=== PATIENT | male | born 1960 | race Caucasian/White ===

== ENCOUNTER 2024-05-24 18:26 | Emergency (ER) | payer MEDICARE, SELFPAY ==
[2024-05-24 18:28] VITALS: BP 119/93
[2024-05-24 19:24] VITALS: BP 140/94
[2024-05-24 19:25] VITALS: BMI 27.2
[2024-05-24 19:45] LABS: % Basophils 1.4 % (0-2); % Eosinophils 3.1 % (0-6); % Immature Granulocytes 0.2 % (0-0.5); % Lymphocytes 24.3 % (20.5-51.1); % Monocytes 8.1 % (1.7-9.3); % Neutrophils 62.9 % (42.2-75.2); Absolute Basophils 0.1 10^3/uL (0-0.2); Absolute Eosinophils 0.2 10^3/uL (0-0.7); Absolute Lymphocytes 1.4 10^3/uL (1.2-3.4); Absolute Monocytes 0.5 10^3/uL (0.1-0.6); Absolute Neutrophils 3.6 10^3/uL (1.4-6.5); Hematocrit 36.5 % (39.0-52.0); Hemoglobin 12.6 g/dL (13.0-18.0); Mean Corp Hgb Conc. 34.5 g/dL (33.0-37.0); Mean Corpuscular Hgb 29.5 pg (27.0-31.0); Mean Corpuscular Volume 85.5 fL (80.0-94.0); Mean Platelet Volume 10.5 fL (7.4-10.4); Nucleated Red Blood Cells % 0 % (-); Platelet Count 163 10^3/uL (130-400); Red Blood Cell Count 4.27 10^6/uL (4.70-6.10); Red Cell Dist. Width 12.5 % (11.5-14.5); White Blood Cell Count 5.8 10^3/uL (4.8-10.8)
[2024-05-24 20:00] VITALS: BP 146/102
--- NOTE | 2024-05-24 20:02 | ED.GENMED ---
History of Present Illness
General
Chief Complaint: Swelling
Source: patient
Time Seen by Provider: 05/24/24 19:50
History of Present Illness
History of Present Illness:
64-year-old male with past medical history of Parkinson's disease, hypertension presenting to the emergency department at the request of primary care provider after patient had blood work done yesterday due to bilateral lower extremity edema that
reportedly showed abnormalities but patient is unsure as to what was abnormal. Patient notes that the swelling has been ongoing over the last 3 months, seems to be unchanged today, and has had some mild orthopnea. Patient is minimally exertional
secondary to his Parkinson's. Denies cough, chest pain, current shortness of breath, pleurisy, hemoptysis or any other concerns. He denies being on any anticoagulants or diuretics.
Past History
Past History
ED Past Medical History: HTN and Other (Parkinson's)
ED Past Surgical History: Orthopedic and Other
Social History
Tobacco: Non-smoker
Alcohol: None
Drug: None
Personal:
Living: with family
Review of Systems
Review of Systems
All Other Systems: ROS reviewed and negative except as documented in HPI and ROS
Phy Exam
Physical Exam
Physical Exam:
GENERAL: Alert , in no apparent distress
HEAD: NCAT
EYE: conjunctiva clear
NECK: Supple
ENT: o/p clr, mmm.
CARDIAC: Regular rate and rhythm
LUNGS: Clear breath sounds bilaterally, no acute respiratory distress, no wheezes/rales/rhonchi
NEUROLOGICAL: Alert and oriented
SKIN: Warm and dry, skin intact.
MUSCULOSKELETAL: well perfused. Significant edema to bilateral lower extremities
PSYCH: Normal and appropriate interaction.
Scores
Heart Failure Risk
Heart Failure Risk Score: Yes
History of Stroke or TIA: No
History of intubation for respiratory distress: No
Heart rate on ED arrival >/= 110: No
SaO2 <90% on arrival on room air: No
HR >/=110 during 3min walk test (or too ill to perform test): Yes
ECG has acute ischemic changes: No
Urea >/=12mmol/L (BUN 33.6mg/dL): No
Serum CO2>/=35mmol/L: No
Troponin I or T elevated to NE Level (0.4mg/dL): No
NT-proBNP >/=5,000ng/L (5,000pg/ml): No
HF Risk Score: 2
Admission Status: MEDIUM RISK 9.2% Consider observation or discharge to home with homecare & f/u visit to PCP/Sec Reporting Consultant, or SNF for treatment
Heart Score for Chest Pain Patients
STEMI patient?: Not applicable
Withdrawal Assessment of Alcohol
Withdrawal Assessment Completed?: Not applicable
Course
Orders/Labs/Results
Orders:
Orders
05/24/24 19:36
CMP [Comprehensive Metabolic Panel] Urgent
Complete Blood Count/With Diff Urgent
NT-proBNP Urgent
Comment: ADD ON
05/24/24 19:50
Add On- LAB Urgent
Tests Added?: BNP
05/24/24 19:56
Peripheral Venous Lwr Ext Bilat US [US Periph Venous LOWER Ext Bebo] Urgent
Comment:
Reason For Exam: bilateral lower leg edema
05/24/24 21:17
Electrocardiogram (*1) Urgent
Reason for Study: Other
Other Reason for Exam: edema
Furosemide [Lasix] 40 mg IV NOW STA
Abnormal Lab Results
05/24/24
19:36
RBC 4.27 L 10^6/uL
(4.70-6.10)
Hgb 12.6 L g/dL
(13.0-18.0)
Hct 36.5 L %
(39.0-52.0)
MPV 10.5 H fL
(7.4-10.4)
Chloride 109 H mmol/L
(98-107)
05/24/24 19:36
05/24/24 19:36
Vital Signs
Initial and Last Documented VS:
Initial Vital Signs
Temp Pulse Resp BP Pulse Ox
98.1 F 60 18 119/93 96
05/24/24 18:28 05/24/24 18:28 05/24/24 18:28 05/24/24 18:28 05/24/24 18:28
Last Documented Vital Signs
Temp Pulse Resp BP Pulse Ox
98.1 F 60 18 146/102 97
05/24/24 18:28 05/24/24 18:28 05/24/24 18:28 05/24/24 20:00 05/24/24 21:17
MDM/Problems Addressed
Differential Diagnosis Includes:
Venous insufficiency, CHF, renal dysfunction
MDM/Problems Addressed:
64-year-old male presenting to the emergency department for evaluation of bilateral lower extremity edema. Reportedly had abnormal blood work with primary care provider yesterday but patient is unsure as to what the abnormality was. Patient does
have pretty significant bilateral lower extremity edema on exam. He is otherwise hemodynamically stable. Labs ordered including a BNP. Will also order ultrasound of the bilateral lower extremities.
*Pulse Oximetry
Patient hypoxic: no
*Critical Care Note
Total Time (30-74mins, 75-104mins- exclusive of procedures): Not Applicable
Data Reviewed
Review of Other/Old Records Reveals: Labs and Records
Source: patient and records
Patient Management
Discussion with other providers: PCP
Escalation/DeEscalation of care consider admission/obs:
Case d/w patients PCP, Dr. vásquez, had an elevated BNP and d-dimer. Prefers patient be admitted given chronic medical conditions and need for further work up
Patients labs and US are unremarkable. I discussed with patient that Dr. Vásquez would like him admitted for monitoring but patient would like to be discharged holley.. I do think this is reasonable given normal labs and stability. Will dose 40mg
lasix IV now. Dr. Vásquez made aware and will ensure close outpatient follow up.
ED Attending Note
-
Portions of this chart may have been created with voice recognition software.� Occasional wrong word or��sound alike� substitutions may have occurred due to the inherent limitations of voice recognition software.
Discharge Plan
Departure
Patient Disposition: Home (Routine Discharge)
Date of Disposition: 05/24/24
Time of Disposition: 21:19
Patient with high blood pressure during this ER visit?: Yes
Discharge Problem:
Bilateral edema of lower extremity
Instructions: Dependent Edema (DC)
Prescriptions:
No Action
finasteride 5 MG tablet
5 mg PO HS
terazosin 5 MG capsule
5 mg PO HS
Gocovri 137 MG capsule,extended release 24hr
274 mg PO DAILY
metoprolol succinate 25 MG tablet extended release 24 hr
25 mg PO HS
rivastigmine tartrate 6 mg Capsule
6 mg PO BID
oxycodone 20 mg Tablet
20 mg PO .5X DAILY
cholecalciferol (vitamin D3) 125 mcg (5,000 unit) Tablet
250 mcg PO HS
Movantik 25 mg Tablet
25 mg PO DAILY
Gemtesa 75 mg Tablet
75 mg PO HS
Referrals:
Carlos Vásquez DO [Family Provider] -
Interventions
Interventions:
*Risk Screen - Suicide Last Done: 05/24/24 18:28
*General Assessment Last Done: 05/24/24 18:28
*Neglect/Abuse Screening Last Done: 05/24/24 18:28
*ED COVID-19 Vaccine History Last Done: 05/24/24 19:25
ED- Cardiac Assessment Last Done: 05/24/24 19:26
ED- Pulmonary Assessment Last Done: 05/24/24 19:26
ED-Skin Assessment Last Done: 05/24/24 19:26
Discharge Date and Time
Print Language: MOSOT[place]
[2024-05-24 20:12] LABS: ALT (SGPT) 10 U/L (0-50); AST (SGOT) 20 U/L (17-59); Albumin 4.2 g/dl (3.5-5.0); Alkaline Phosphatase 92 U/L (38-126); Blood Urea Nitrogen 13 mg/dl (9-20); Calcium 9.4 mg/dl (8.4-10.2); Carbon Dioxide 27 mmol/L (22-30); Chloride 109 mmol/L (98-107); Estimated Creatinine Clearance 89 ml/min; Glucose 92 mg/dl (70-99); Potassium 4.1 mmol/L (3.5-5.1); Sodium 141 mmol/L (135-145); Total Bilirubin 1.3 mg/dl (0.2-1.3); Total Protein 6.4 g/dl (6.3-8.2); eGFR > 60.00
[2024-05-24 21:17] LABS: NT-proBNP 508 pg/ml
[2024-05-24] MEDS: LASIX 40 MG IV (21:30)
[2024-05-24 21:31] VITALS: BP 170/93
== END 2024-05-24 21:56 | disposition home or self-care (01) ==
LOC: EMR 18:26
PROVIDERS: Nurse Practitioner; EMERGENCY PHYSICIAN Emergency Medicine; FAMILY PHYSICIAN Family Medicine
DX: R60.0 Localized edema (principal); I10 Essential (primary) hypertension; G20.A1 Parkinson's disease without dyskinesia, without mention of fluctuations
CPT/HCPCS: 99284; 96374; 80053; 83880; 85025; 93970

== ENCOUNTER → 2024-06-15 15:06 | Outpatient (REF) | payer MEDICARE, SELFPAY | LOC: RCS 15:06 | PROVIDERS: ATTENDING PHYSICIAN Nurse Practitioner; FAMILY PHYSICIAN Family Medicine | DX: I10 Essential (primary) hypertension (principal); R60.0 Localized edema; I34.0 Nonrheumatic mitral (valve) insufficiency | CPT/HCPCS: 93306 ==